=== PATIENT | female | born 1935 | race Caucasian/White ===

== ENCOUNTER → 2017-04-10 | Day surgery (SDC) | payer MEDICARE ==
[~2017-04-10] VITALS: Ht 154.9 cm; Wt 87.2 kg
[~2017-04-10] MED LIST: *RESP: ALBUTEROL 2.5 MG/3 ML NEB (PRN) PERIprocedural Use ONLY NEB ONE; ACETAMINOPHEN 1000 MG/100 ML 100 ML IV ONE; BACITRACIN TOP OINT 15 GM TUBE ONE; CHLORHEXIDINE GLUCONATE 2 % 1 PACK (2 CLOTHS) TOPICAL PRN; DEXAMETHASONE SOD PHOS 4 MG/ML VIAL IV ONE; DO NOT ADM ANY ANTICOAGULANT DRUGS PRN; ESCI20TA PO; GLIP5TAB8 PO; GLYCOPYRROLATE 1 MG/5 ML SYRINGE IV PUSH ONE; HYDROmorphone HCL PF 0.5 MG/0.5 ML SYRINGE IV PUSH PRN; HYDROmorphone HCL PF 2 MG/ML VIAL ONE; KETOROLAC TROMETHAMINE 30 MG/ML (IVP) VIAL IV PUSH ONE; LACTATED RINGER'S 1000 ML INJ 500 ML IV SCH; LACTATED RINGER'S 1000 ML IV PRN; LIDOCAINE HCL 1% PF 5 ML AMPULE OTHER ONE; LIDOCAINE HCL 2% 50 ML VIAL ONE; LISI40TA PO; METOPROLOL TARTRATE 25 MG TAB PO PRN; MIDAZOLAM HCL 2 MG/2 ML VIAL IV ONE; NEOMYCIN/POLYMYXIN 1 ML G.U. IRRIGANT ONE; NEOSTIGMINE 3 MG/3 ML SYR IV ONE; OMEP20TA93 PO; ONDANSETRON HCL 4 MG/2 ML VIAL IV ONE; ONDANSETRON HCL 4 MG/2 ML VIAL IV PUSH PRN; POVIDONE IODINE 5% (ANTISEPSIS KIT) 4 APPLICATIONS EACH NARE PRN; PROPOFOL 200 MG/20 ML AMP IV ONE; ROCURONIUM INJ 50 MG/5 ML SYRINGE IV PUSH ONE; ROPI0.5T PO; SODIUM CHLORID 0.9% 500 ML IV PRN; SUCCINYLCHOLINE CHLORIDE 100 MG/5 ML SYRINGE IV PUSH ONE; VANCOMYCIN HCL 1000 MG ON-CALL/NS 250 ML IV SCH; ceFAZolin 2 GM PREMIX 50 ML IV SCH; ePHEDrine/NS 25 MG/5 ML SYR IV ONE
[2017-04-10 06:41] LABS: AUTOMATED NEUTROPHIL # 9.6 TH/MM3 (1.8-7.7); BASOPHIL # 0.1 TH/MM3 (0-0.2); BASOPHIL % 0.9 % (0.0-2.0); EOSINOPHIL # 0.3 TH/MM3 (0-0.4); EOSINOPHIL % 2.1 % (0.0-4.0); HEMATOCRIT 43.6 % (35.0-46.0); HEMO FLAGS DIFF FINAL; LYMPH % 13.3 % (9.0-44.0); LYMPHOCYTE # 1.7 TH/MM3 (1.0-4.8); MEAN CELL VOLUME 79.6 FL (80.0-100.0); MEAN CORPUSCULAR HEMOGLOBIN 26.2 PG (27.0-34.0); MEAN CORPUSCULAR HGB CONC 32.9 % (32.0-36.0); NEUT % 76.7 % (16.0-70.0); PLATELET COUNT 148 TH/MM3 (150-450); RED BLOOD COUNT 5.48 MIL/MM3 (4.00-5.30); RED CELL DISTRIBUTION WIDTH 14.5 % (11.6-17.2); WHITE BLOOD COUNT 12.5 TH/MM3 (4.0-11.0)
--- NOTE | 2017-04-10 12:13 | RADRPT ---
EXAM DATE/TIME: 04/10/2017 10:03 [place] COMPARISON: No previous studies available for comparison. INDICATIONS : Left wrist ORIF. MEDICAL HISTORY : None. SURGICAL HISTORY : None. ENCOUNTER: Initial ACUITY: 1 day PAIN SCORE: Non-responsive. LOCATION: Left Wrist. FINDINGS: Multiple images are presented. Patient appears to be status post resection of the distal ulnar. Other stubbs the bony structures are grossly intact. There are some degenerative changes involving the carpal bones. CONCLUSION: Status post resection of the distal ulna. Efra Jaramillo MD on April 10, 2017 at 12:11 Board Certified Radiologist. This report was verified electronically.
[2017-04-10 13:45] VITALS: BP 120/58; PULSE 90; RESP 20; TEMP 97.6; O2SAT 96
--- NOTE | 2017-04-10 22:28 | MP ---
cc: JOSI SORENSEN DATE OF SURGERY 04/10/17 PREOPERATIVE DIAGNOSIS 1. 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 2. Carpal tunnel syndrome, left. 3. 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 POSTOPERATIVE DIAGNOSIS 1. 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 2. Carpal tunnel syndrome, left. 3. 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 PROCEDURE 1. Darrach procedure, left wrist. 2. Posterior interosseous nerve neurectomy, left wrist. 3. Left carpal tunnel release. 4. Guyon's canal release, left wrist. SURGEON Dr. Josi Sorensen. ANESTHESIA General and local. TOURNIQUET TIME 78 minutes at 250 mmHg. SPECIMEN Distal ulna for pathology. INDICATIONS FOR PROCEDURE Hellen Heaton is a pleasant 81-year-old right-hand dominant female who I have seen in the past for multiple hand complaints. She recently had a fall sustaining a fracture of the ulnar side of the wrist as well as the trapezium. The pain over the trapezium healed but the patient persistent pain over the ulnar side of the wrist which failed corticosteroid injection. EMG nerve conduction study shows mild cubital tunnel syndrome and moderate carpal tunnel. The patient reported ulnar nerve symptoms. MRI confirms arthritis throughout the wrist, specifically ulnar impaction. Treatment options discussed with the patient including continued conservative management including splinting, verses repeat corticosteroid injection, versus surgical intervention. The patient requested surgical intervention. She understands that she is at risk for persistent pain in the wrist due to arthritis, need for additional surgeries including wrist fusion, persistent paresthesias and she elected to proceed. DESCRIPTION OF PROCEDURE The patient was identified in the preoperative holding area and the correct extremity was marked. The patient was taken to the operating where anesthesia was induced. The left upper extremity was prepped and draped in normal sterile fashion. X-rays confirmed a significant ulnar impaction with significant arthritis over the distal ulna. The decision was made to perform a standard dorsal approach to the wrist in case the patient needed a wrist fusion either at this date or a later date. Tourniquet was inflated to 250 mmHg for 78 minutes. A longitudinal incision was made over the dorsum of the wrist. The extensor retinaculum was identified and protected throughout the procedure. The extensor carpi ulnaris as well as the extensor tendon to the small finger were identified and protected throughout the procedure. A capsular flap was made over the distal ulna. There was significant fluid with no sign of infection over the distal ulna. Under fluoroscopy the distal ulna was identified and approximately 1 cm was resected using a saw. This was just at the level of the sigmoid notch. Care was taken to resect less than 2 cm and again it was approximately 1 cm cut. The distal ulna was sent for gross pathology. Following this the patient had no significant impaction with radial ulnar deviation or/and no significant subluxation with supination or pronation. The decision was made not to perform a wrist fusion as the patient had good range of motion of the wrist. The capsule was then closed with the PDS. Again, supination, pronation of the wrist showed no significant subluxation of the distal ulna and no clicking. The patient understands she is at risk for convergence of the distal ulna as well as need for additional surgeries. Attention was then turned to identify the posterior interosseous nerve. A posterior interosseous nerve neurectomy was performed at the base of the fourth extensor compartment. Next, attention was turned to the carpal tunnel. A volar incision was made in line with the radial border ring finger. Palmar fascia was identified and incised. The patient had a very superficial and radial ulnar nerve and artery which were decompressed and then a carpal tunnel release was performed. Care was taken to protect the median nerve as well as the palmar arch. Tourniquet was released. Hemostasis was obtained. The patient had good capillary refill to the fingers. The wounds were closed with Monocryl and nylon. The patient was placed into a sugar-tong splint. Approximately 15 cc of 2% lidocaine with no epinephrine was used to perform local anesthesia. I will see the patient in 2 weeks. She will likely be in a long-arm splint for several weeks. She may need occupational therapy. The patient understands she is again at risk for persistent paresthesias and persistent pain over the wrist. MD SARA Duran/ALEK /8:16 PM /10:00 PM JONY
== END | disposition home or self-care (01) ==
LOC: HSDC 05:19
PROVIDERS: ATTEND Orthopaedic Surgery
DX: G56.02 Carpal tunnel syndrome, left upper limb (principal); G56.22 Lesion of ulnar nerve, left upper limb; M25.832 Other specified joint disorders, left wrist; M19.032 Primary osteoarthritis, left wrist; I10 Essential (primary) hypertension
CPT/HCPCS: 01810; 25240; 64719; 64721; 73110; 76000; 85025; 88304; 88311; 94150; J0131; J0330; J0690; J1100; J1170; J1885; J2250; J2405; J2710; J3010; J3370; J7050; J7120; J7613; 88305; 88307